=== PATIENT | female | born 1975 | race African-American/Black ===

== ENCOUNTER 2017-12-15 09:37 | Emergency (ER) | payer MEDICAID ==
[~2017-12-15] VITALS: Ht 165.1 cm; Wt 84.4 kg
[~2017-12-15 09:37] MED LIST: THYR30TA PO
[2017-12-15 09:46] VITALS: BP 138/91
[2017-12-15] MEDS ORDERED: KETOROLAC TROMETH 60MG/2ML VIAL IM ONE (10:30)
== END 2017-12-15 11:00 | disposition home or self-care (01) ==
LOC: ER 09:37
DX: S46.911A Strain of unspecified muscle, fascia and tendon at shoulder and upper arm level, right arm, initial encounter (principal); W01.0XXA Fall on same level from slipping, tripping and stumbling without subsequent striking against object, initial encounter; Y93.89 Activity, other specified; Y92.090 Kitchen in other non-institutional residence as the place of occurrence of the external cause; Y99.9 Unspecified external cause status
CPT/HCPCS: 73030; 96372; 99284; J1885